=== PATIENT | female | born 1965 | race Caucasian/White ===

== ENCOUNTER 2017-04-09 05:45 | Inpatient (IN) | payer MEDICAID ==
[~2017-04-09] VITALS: Ht 167.6 cm; Wt 59.0 kg
[2017-04-09] VITALS (47 sets, daily range): BP systolic 111–283; BP diastolic 40–210
[~2017-04-09 05:45] MED LIST: AMIT25TA9 PO; AMLO2.5T45 PO; ASCO500W7 PO; BENTL PO; HYDR-519 PO; IBUP-2030 PO; LORA1TAB PO; METO-293 PO; MULT-44 PO; PANT40TA4 PO
[2017-04-09 06:05] LABS: CLARITY URINE CLEAR (CLEAR); COLOR URINE YELLOW (YELLOW); GLUCOSE URINE NEGATIVE (NEGATIVE); KETONES URINE NEGATIVE (NEGATIVE); LEUKOCYTE ESTERASE URINE NEGATIVE (NEGATIVE); NITRITE URINE NEGATIVE (NEGATIVE); OCCULT BLOOD URINE TRACE (NEGATIVE); PH URINE 5.5 (4.5-8.0); PROTEIN URINE NEGATIVE (NEGATIVE); SPECIFIC GRAVITY URINE 1.023 (1.005-1.030)
[2017-04-09 06:08] LABS: UCG SCREEN NEGATIVE
[2017-04-09 06:24] LABS: EOSINOPHILS % 2.2 % (0.0-5.0); HEMATOCRIT. 34.7 % (36.0-48.0); HEMOGLOBIN. 11.6 g/dL (12.0-16.0); MEAN CORPUSCULAR HEMOGLOBIN 27.8 pg (28.0-32.0); MEAN CORPUSCULAR VOLUME 83.5 fL (81.0-99.0); NEUTROPHILS % 53.8 % (40.0-76.0); PLATELET 257 x1000/uL (130-400); RED BLOOD CELL COUNT 4.16 mill/uL (4.2-5.4); RED CELL DISTRIBUTION WIDTH 14.2 % (11.6-14.6)
[2017-04-09] MEDS ORDERED: LACTATED RINGERS 1,000 ML IV SCH (06:30)
[2017-04-09 06:33] LABS: INR 1.1; PROTHROMBIN TIME 11.1 sec (9.4-11.6)
[2017-04-09 06:39] LABS: CARBON DIOXIDE 28 mEq/L (21-32); CHLORIDE 109 mEq/L (98-107)
[2017-04-09] MEDS ORDERED: NORMAL SALINE 0.9% 10 ML SYR ONE (06:39)
[2017-04-09] MEDS ORDERED: GELATIN SPONGE,ABSORBABLE SZ 100 ONE (06:39)
[2017-04-09] MEDS ORDERED: THROMBIN (BOVINE) 5000 UNITS/VIAL TOP ONE (06:39)
[2017-04-09] MEDS ORDERED: LIDOCAINE HCL 1%/EPI 1:200,000 30 ML VIAL ONE (06:39)
[2017-04-09] MEDS ORDERED: BACITRACIN 50,000 UNITS/VIAL ONE (06:40)
[2017-04-09] MEDS ORDERED: ONDANSETRON HCL 4MG/2ML VIAL IV PRN ×2 (09:00→10:00)
[2017-04-09] MEDS ORDERED: LABETALOL HCL 20MG/4ML CARPUJECT IV PRN (09:00)
[2017-04-09] MEDS ORDERED: MEPERIDINE HCL/PF 25MG/ML CPJ IV PRN (09:00)
[2017-04-09] MEDS ORDERED: CEFAZOLIN SODIUM 1000MG/VIAL ONE (09:41)
[2017-04-09] MEDS ORDERED: ROCURONIUM BROMIDE 10MG/ML VIAL 5ML IV ONE (09:41)
[2017-04-09] MEDS ORDERED: NEOSTIGMINE METHYLSULFATE 1MG/ML 10 ML VIAL ONE (09:41)
[2017-04-09] MEDS ORDERED: GLYCOPYRROLATE 0.2 MG/ML 2ML VIAL ONE (09:41)
[2017-04-09] MEDS ORDERED: DEXAMETHASONE 4MG/ML 1ML VIAL ONE (09:41)
[2017-04-09] MEDS ORDERED: IPRATROPIUM/ALBUTEROL 0.5-3(2.5)MG/3ML NEB INH PRN (10:00)
[2017-04-09] MEDS ORDERED: NICARDIPINE 50 MG in SODIUM CHLORIDE 0.9% 230 ML IV PRN (10:00)
[2017-04-09] MEDS ORDERED: ACETAMINOPHEN 325MG TABLET PO PRN (10:00)
[2017-04-09] MEDS ORDERED: NALOXONE INJ IV PRN (10:45)
[2017-04-09] MEDS ORDERED: DIPHENHYDRAMINE INJ IV PRN (10:45)
[2017-04-09] MEDS ORDERED: ONDANSETRON INJ IV PRN (10:45)
[2017-04-09] MEDS: HYDROMORPHONE HCL/PF 2MG/ML CPJ IV PRN ×3 (10:48→20:00)
[2017-04-09] MEDS ORDERED: NICARDIPINE 100 MG in SODIUM CHLORIDE 0.9% 100 ML IV PRN (11:00)
[2017-04-09] MEDS: HYDROMORPHONE PCA 10MG/50ML IV PRN (11:19)
[2017-04-09] MEDS: DEXT 5%/LACTATED RINGERS 1,000 ML IV SCH ×2 (11:29→21:09)
[2017-04-09] MEDS ORDERED: CEFAZOLIN SODIUM 1000MG/VIAL IV SCH (14:00)
[2017-04-09] MEDS: CEFAZOLIN 1000MG PREMIX 50 ML IV SCH ×2 (14:51→21:03)
[2017-04-09] MEDS: MORPHINE SULFATE 4 MG/ML CPJ (NOT FOR IM USE) IV PRN ×2 (21:39→23:39)
[2017-04-10] VITALS (33 sets, daily range): BP systolic 89–185; BP diastolic 39–180
[2017-04-10] MEDS: MORPHINE SULFATE 4 MG/ML CPJ (NOT FOR IM USE) IV PRN ×9 (02:33→21:35)
[2017-04-10] MEDS: DIPHENHYDRAMINE 50MG/ML VIAL IV PRN ×2 (03:53→13:24)
[2017-04-10] MEDS: CEFAZOLIN 1000MG PREMIX 50 ML IV SCH (06:41)
[2017-04-10 09:22] LABS: HEMATOCRIT 30.8 % (36.0-48.0); HEMOGLOBIN 10.2 g/dL (12.0-16.0); MEAN CORPUSCULAR VOLUME 84.1 fL (81.0-99.0); PLATELET 201 x1000/uL (130-400); RED BLOOD CELL COUNT 3.66 mill/uL (4.2-5.4); RED CELL DISTRIBUTION WIDTH 14.7 % (11.6-14.6)
[2017-04-10 09:40] LABS: CARBON DIOXIDE 28 mEq/L (21-32); CHLORIDE 109 mEq/L (98-107)
[2017-04-10] MEDS: HYDROMORPHONE PCA 10MG/50ML IV PRN (10:30)
[2017-04-10] MEDS: HYDROCODONE/ACETAMINOPHEN 10/325MG TABLET PO PRN (17:16)
[2017-04-10] MEDS: DEXT 5%/LACTATED RINGERS 1,000 ML IV SCH (18:48)
[2017-04-11] VITALS: BP 120/77
[2017-04-11] MEDS: MORPHINE SULFATE 4 MG/ML CPJ (NOT FOR IM USE) IV PRN ×6 (00:07→22:23)
[2017-04-11] MEDS: DIPHENHYDRAMINE 50MG/ML VIAL IV PRN ×4 (00:10→19:42)
[2017-04-11] MEDS: HYDROCODONE/ACETAMINOPHEN 10/325MG TABLET PO PRN ×2 (01:23→18:41)
[2017-04-11] MEDS: HYDROMORPHONE HCL/PF 2MG/ML CPJ IV PRN ×5 (01:53→20:24)
[2017-04-11 04:00] VITALS: BP 122/72
[2017-04-11 08:00] VITALS: BP 113/72
[2017-04-11 12:00] VITALS: BP 120/60
[2017-04-11] MEDS: DEXT 5%/LACTATED RINGERS 1,000 ML IV SCH ×2 (15:20→17:51)
[2017-04-11 16:00] VITALS: BP 114/70
[2017-04-11 20:00] VITALS: BP 148/73
[2017-04-11 23:24] LABS: HEMATOCRIT 29.8 % (36.0-48.0); HEMOGLOBIN 10.2 g/dL (12.0-16.0); MEAN CORPUSCULAR HEMOGLOBIN 28.3 pg (28.0-32.0); MEAN CORPUSCULAR VOLUME 83.2 fL (81.0-99.0); PLATELET 198 x1000/uL (130-400); RED BLOOD CELL COUNT 3.59 mill/uL (4.2-5.4); RED CELL DISTRIBUTION WIDTH 14.5 % (11.6-14.6)
[2017-04-11 23:43] LABS: CARBON DIOXIDE 27 mEq/L (21-32); CHLORIDE 104 mEq/L (98-107)
[2017-04-12] VITALS: BP 118/73
[2017-04-12] MEDS: HYDROMORPHONE HCL/PF 2MG/ML CPJ IV PRN ×5 (01:11→20:12)
[2017-04-12] MEDS: DIPHENHYDRAMINE 50MG/ML VIAL IV PRN ×2 (02:43→20:11)
[2017-04-12] MEDS: HYDROCODONE/ACETAMINOPHEN 10/325MG TABLET PO PRN ×3 (02:44→18:58)
[2017-04-12 04:00] VITALS: BP 122/70
[2017-04-12] MEDS: MORPHINE SULFATE 4 MG/ML CPJ (NOT FOR IM USE) IV PRN ×6 (04:33→22:56)
[2017-04-12 08:00] VITALS: BP 143/88
[2017-04-12 12:00] VITALS: BP 131/95
[2017-04-12 16:00] VITALS: BP 149/95
[2017-04-12 20:00] VITALS: BP 121/68
[2017-04-12] MEDS: DEXT 5%/LACTATED RINGERS 1,000 ML IV SCH (20:19)
[2017-04-12] MEDS ORDERED: HYDROMORPHONE HCL/PF 2MG/ML CPJ IV NR ×2 (20:30→21:00)
[2017-04-13] VITALS: BP 138/91
[2017-04-13] MEDS: HYDROCODONE/ACETAMINOPHEN 10/325MG TABLET PO PRN ×2 (00:44→06:06)
[2017-04-13] MEDS: HYDROMORPHONE HCL/PF 2MG/ML CPJ IV PRN ×6 (00:51→23:30)
[2017-04-13 04:00] VITALS: BP 110/69
[2017-04-13] MEDS: MORPHINE SULFATE 4 MG/ML CPJ (NOT FOR IM USE) IV PRN ×2 (04:39→10:03)
[2017-04-13] MEDS: DEXT 5%/LACTATED RINGERS 1,000 ML IV SCH ×3 (04:39→23:44)
[2017-04-13 08:00] VITALS: BP 143/86
[2017-04-13 12:00] VITALS: BP 140/70
[2017-04-13 16:00] VITALS: BP 142/82
[2017-04-13] MEDS: OXYCODONE HCL 5MG TABLET PO SCH ×2 (17:48→23:44)
[2017-04-13 20:00] VITALS: BP 151/89
[2017-04-14] VITALS: BP 130/82
[2017-04-14 04:00] VITALS: BP 121/71
[2017-04-14] MEDS: OXYCODONE HCL 5MG TABLET PO SCH ×3 (05:53→18:38)
[2017-04-14] MEDS: HYDROMORPHONE HCL/PF 2MG/ML CPJ IV PRN ×5 (05:57→21:14)
[2017-04-14] MEDS: DEXT 5%/LACTATED RINGERS 1,000 ML IV SCH (06:00)
[2017-04-14 08:00] VITALS: BP 135/70
[2017-04-14 12:00] VITALS: BP 130/60
[2017-04-14] MEDS: LACTULOSE 20G/30ML UDC PO SCH ×5 (13:22→21:11)
[2017-04-14 16:00] VITALS: BP 153/83
[2017-04-14] MEDS: DIPHENHYDRAMINE 50MG/ML VIAL IV PRN (16:58)
[2017-04-14 20:00] VITALS: BP 119/79
[2017-04-15] MEDS: OXYCODONE HCL 5MG TABLET PO SCH ×4 (00:03→18:42)
[2017-04-15] MEDS: HYDROMORPHONE HCL/PF 2MG/ML CPJ IV PRN ×6 (00:13→20:28)
[2017-04-15 04:00] VITALS: BP 119/68
[2017-04-15] MEDS: LACTULOSE 20G/30ML UDC PO SCH ×3 (06:13→21:07)
[2017-04-15 08:00] VITALS: BP 122/79
[2017-04-15 12:00] VITALS: BP 145/98
[2017-04-15] MEDS: DEXT 5%/LACTATED RINGERS 1,000 ML IV SCH (12:40)
[2017-04-15 16:00] VITALS: BP 139/97
[2017-04-15 20:00] VITALS: BP 114/68
[2017-04-15] MEDS: NICOTINE 21MG PATCH TD SCH (21:10)
[2017-04-16] VITALS: BP 146/94
[2017-04-16] MEDS: OXYCODONE HCL 5MG TABLET PO SCH ×3 (00:41→12:32)
[2017-04-16] MEDS: HYDROMORPHONE HCL/PF 2MG/ML CPJ IV PRN ×3 (01:44→10:07)
[2017-04-16] MEDS: DEXT 5%/LACTATED RINGERS 1,000 ML IV SCH (02:00)
[2017-04-16 04:00] VITALS: BP 115/65
[2017-04-16] MEDS: LACTULOSE 20G/30ML UDC PO SCH (05:19)
[2017-04-16 08:00] VITALS: BP 129/72
[2017-04-16] MEDS: NICOTINE 21MG PATCH TD SCH (08:19)
[2017-04-16] MEDS ORDERED: NICOTINE 21MG PATCH TD SCH (09:00)
[2017-04-16 12:00] VITALS: BP 146/87
[2017-04-16 13:02] VITALS: BP 146/89
== END 2017-04-16 15:02 | disposition home health service (06) | DRG 304 ==
LOC: OR 05:45 → MICUNO 05:46 → 6EST 04-10 15:37
PROVIDERS: ADMIT Internal Medicine; ATTEND Internal Medicine
PROC: 0SG3071 Fusion of Lumbosacral Joint with Autologous Tissue Substitute, Posterior Approach, Posterior Column, Open Approach (ICD-10-PCS; 2017-04-09)
PROC: 0SG1071 Fusion of 2 or more Lumbar Vertebral Joints with Autologous Tissue Substitute, Posterior Approach, Posterior Column, Open Approach (ICD-10-PCS; principal; 2017-04-09 07:30)
DX: M47.26 Other spondylosis with radiculopathy, lumbar region (principal); M48.06 Spinal stenosis, lumbar region; M43.16 Spondylolisthesis, lumbar region; R53.83 Other fatigue
CPT/HCPCS: 36415; 71010; 72100; 80053; 81001; 81025; 85025; 85027; 85610; 85730; 86850; 86900; 93005; 95863; 95925; 95926; 97116; 97162; 97530; A4216; C1713; J0690; J1100; J1170; J1200; J2270; J2405; J2710; J3490; J7050; J7120; J7121